=== PATIENT | male | born 1955 | race Hispanic/Latino ===

== ENCOUNTER 2020-01-11 06:11 | Day surgery (SDC) | payer BC ==
[~2020-01-11] VITALS: Ht 167.6 cm; Wt 93.0 kg
[2020-01-11 06:36] LABS: HEMATOCRIT 44.7 % (39.0-50.0); HEMOGLOBIN 14.6 g/dl (14.0-18.0); IMMATURE GRANULOCYTES 0.3 % (0.0-5.0); MEAN CELL VOLUME 89.8 fL CALC (80.0-100.0); MEAN CORPUSCULAR HGB 29.3 pG CALC (26.0-32.0); MEAN CORPUSCULAR HGB CONC 32.7 g/dL CAL (32.0-36.0); NEUT# 3.55 thou/uL (1.82-7.42); RED BLOOD COUNT 4.98 mill/uL (4.70-6.10)
[2020-01-11 06:52] LABS: ANION GAP 14 (6-22 (CALC)); BUN 15 mg/dL (8-23); BUN/CREATININE RATIO 17 (12-20 (CALC)); CARBON DIOXIDE 23 mmol/l (22-30); CHLORIDE 107 mmol/l (95-108); CREATININE 0.9 mg/dL (0.7-1.3); GFR > 60 ML/MIN (>=60 (CALC)); GFR FOR AFR.AMER. > 60 ML/MIN (>=60 (CALC)); POTASSIUM 3.6 mmol/l (3.5-5.1); SODIUM 141 mmol/l (137-146)
[2020-01-11 07:07] LABS: MYOGLOBIN 21 ng/mL (0 - 121)
[2020-01-11] MEDS ORDERED: PERCOCET 5/325M1 TAB PO (13:26)
[2020-01-11 14:39] VITALS: BP 167/82
== END 2020-01-11 14:55 | disposition home or self-care (01) | DRG 352 ==
LOC: ED 06:11 → ED-I 06:36 → ED 11:09 → ORM 11:10 → ED 11:32 → ED-I 11:32 → ORM 14:55
PROVIDERS: Emergency Medicine; Family Medicine; ATTEND Surgery
PROC: 0YU50JZ Supplement Right Inguinal Region with Synthetic Substitute, Open Approach (ICD-10-PCS; principal; 2020-01-11)
PROC: 0VBF0ZZ Excision of Right Spermatic Cord, Open Approach (ICD-10-PCS; 2020-01-11)
DX: K40.30 Unilateral inguinal hernia, with obstruction, without gangrene, not specified as recurrent (principal); D17.6 Benign lipomatous neoplasm of spermatic cord; Z20.828 Contact with and (suspected) exposure to other viral communicable diseases
CPT/HCPCS: C9290; J0131; J1100; Q9967